=== PATIENT | female | born 1995 | race Caucasian/White ===

== ENCOUNTER 2020-07-21 20:14 | Emergency (ER) | payer OTHER ==
[~2020-07-21] VITALS: Ht 165.1 cm; Wt 113.4 kg
== END 2020-07-21 22:33 | disposition home or self-care (01) ==
LOC: ER 20:14
DX: R07.89 Other chest pain (principal); R20.2 Paresthesia of skin; F41.1 Generalized anxiety disorder; Z56.3 Stressful work schedule

== ENCOUNTER 2022-04-25 18:13 | Emergency (ER) | payer OTHER ==
[~2022-04-25] VITALS: Ht 165.1 cm; Wt 129.3 kg
[2022-04-25] MEDS ORDERED: ZITHROMAX500 MG PO (19:44)
[2022-04-25] MEDS ORDERED: TUSSIN DM LIQU118 ML PO (19:44)
== END 2022-04-25 19:50 | disposition home or self-care (01) ==
LOC: ER 18:13
DX: R05.3 Chronic cough (principal); U09.9 Post COVID-19 condition, unspecified

== ENCOUNTER 2022-11-03 16:20 | Emergency (ER) | payer OTHER ==
[~2022-11-03] VITALS: Ht 165.1 cm; Wt 117.9 kg
[~2022-11-03 16:20] MED LIST: TUSSIN DM LIQU118 ML PO; ZITHROMAX500 MG PO
[2022-11-03] MEDS ORDERED: OSEL75CA PO (19:51)
== END 2022-11-03 19:56 | disposition home or self-care (01) ==
LOC: ER 16:20
DX: J11.1 Influenza due to unidentified influenza virus with other respiratory manifestations (principal); R06.02 Shortness of breath; R05.9 Cough, unspecified; Z20.822 Contact with and (suspected) exposure to COVID-19